=== PATIENT | female | born 1995 | race Caucasian/White ===

== ENCOUNTER 2020-11-09 09:15 | Observation (INO) ==
[2020-11-09] MEDS ORDERED: Perflutren Lipid Microsphere 1.3 ML in 0.9 % Sodium Chloride 8.7 ML IVP PRN (14:55)
== END 2020-11-11 18:17 | disposition other institution (70) ==
LOC: 1NENULAB
PROVIDERS: ADMIT Obstetrics & Gynecology; ATTEND Obstetrics & Gynecology

== ENCOUNTER 2021-02-14 03:45 | Inpatient (IN) ==
[2021-02-14] MEDS ORDERED: Metoclopramide 10 MG/2 ML VIAL IVP PRN (04:14)
[2021-02-14] MEDS ORDERED: Azithromycin 500 MG in 0.9 % Sodium Chloride 250 ML IVPB PRN (04:14)
[2021-02-14] MEDS ORDERED: *HR* Nalbuphine 10 MG/ML AMPUL IV PRN (04:14)
[2021-02-14] MEDS ORDERED: Naloxone 0.4 MG/ML INJ IVP PRN (04:14)
[2021-02-14] MEDS ORDERED: Ondansetron 4 MG/2 ML VIAL IVP PRN (04:14)
[2021-02-14] MEDS ORDERED: Lidocaine 1% 20 ML MDV INFILT PRN (04:14)
[2021-02-14] MEDS ORDERED: Famotidine 20 MG/2 ML VIAL IVP PRN (04:14)
[2021-02-14] MEDS ORDERED: miSOPROStoL 25 MCG TABLET PO PRN (04:14)
[2021-02-14] MEDS ORDERED: Ringers Solution, Lactated 1,000 ML ONE (04:28)
[2021-02-14] MEDS: Ringers Solution, Lactated 1,000 ML IVC SCH ×2 (04:40→14:58)
[2021-02-14 04:54] LABS: Basophils % 0.2 %; Eosinophils # 0.1 K/mcL (0.0-0.6); Eosinophils % 0.4 %; Hemoglobin 9.9 g/dL (11.5-15.4); Immature Granulocytes % 1.9 % (0-4); Lymphocytes # 1.3 K/mcL (0.6-4.6); Lymphocytes % 10.7 %; Mean Corpuscular HGB Conc 31.9 g/dL (31.6-35.5); Mean Corpuscular Hemoglobin 27.3 pg (28.0-33.3); Mean Corpuscular Volume 85.6 fL (83.0-100.0); Mean Platelet Volume 10.4 fL (9.4-12.4); Monocytes # 0.9 K/mcL (0.0-1.3); Monocytes % 7.4 %; Neutrophils # 9.6 K/mcL (1.6-8.9); Platelet Count 315 K/mcL (140-400); Red Blood Count 3.62 M/mcL (3.82-4.97); Segmented Neutrophils % 79.4 %; White Blood Count 12.1 K/mcL (4.3-11.1)
[2021-02-14 05:23] LABS: Influenza A PCR Negative (Negative); Influenza B PCR Negative (Negative); Resp. Syncytial Virus PCR Negative (Negative)
[2021-02-14 05:24] LABS: SARS-CoV-2 by PCR (In House) Negative (Negative)
[2021-02-14] MEDS ORDERED: Oxytocin 20 units/ LR 1000 mL 20 UNIT/1,000 ML BAG IVC SCH (08:45)
[2021-02-14] MEDS ORDERED: Oxytocin 20 units/ LR 1000 mL 20 UNIT/1,000 ML BAG IVC ONE (08:46)
[2021-02-14 09:51] LABS: Amphetamine Screen,Urine Negative ng/mL (Cutoff=1000); Barbiturate Screen,Urine Negative ng/mL (Cutoff=200); Benzodiazepines Screen,Urine Negative ng/mL (Cutoff=200); Cannabinoid Screen,Urine Negative ng/mL (Cutoff = 50); Cocaine Screen,Urine Negative ng/mL (Cutoff= 300); Opiate Screen,Urine Negative ng/mL (Cutoff=300); Phencyclidine Screen,Urine Negative ng/mL (Cutoff=25)
[2021-02-14] MEDS ORDERED: EPHEDrine 50 MG/ML VIAL IVP PRN (10:09)
[2021-02-14] MEDS ORDERED: Ropivacaine/PF 0.2% 20 ML VIAL EP ONE (10:09)
[2021-02-14] MEDS ORDERED: *HR* FentaNYL (PF) 100 MCG/2 ML VIAL EP ONE (10:09)
[2021-02-15] MEDS: Ringers Solution, Lactated 1,000 ML IVC SCH ×3 (06:56→13:56)
[2021-02-15] MEDS ORDERED: *HR* FentaNYL (PF) 100 MCG/2 ML VIAL EP ONE (07:36)
[2021-02-15] MEDS ORDERED: Ropivacaine/PF 0.2% 20 ML VIAL EP ONE (07:36)
[2021-02-15] MEDS ORDERED: EPHEDrine 50 MG/ML VIAL IVP PRN (07:36)
[2021-02-15] MEDS ORDERED: Ropivacaine/PF 0.2% 20 ML VIAL ONE (07:40)
[2021-02-15] MEDS ORDERED: *HR* FentaNYL (PF) 100 MCG/2 ML VIAL ONE (07:40)
[2021-02-15] MEDS: Epidural Premix (fent/bupiv) 110 ML EP SCH ×2 (08:09→16:25)
[2021-02-15] MEDS ORDERED: Rho Immune Globulin 1,500 UNIT SYRINGE IM PRN (18:01)
[2021-02-15] MEDS ORDERED: Ondansetron ODT 4 MG TAB.RAPDIS SL PRN (18:01)
[2021-02-15] MEDS ORDERED: Oxytocin 20 units/ LR 1000 mL 20 UNIT/1,000 ML BAG IVC SCH (18:01)
[2021-02-15] MEDS ORDERED: Benzocaine/Menthol 56 GM AEROSOL SPRAY TP PRN (18:01)
[2021-02-15] MEDS ORDERED: Oxytocin 20 units/ LR 1000 mL 20 UNIT/1,000 ML BAG IVC ONE (18:01)
[2021-02-15] MEDS ORDERED: Lanolin 7 G OINT...G. TP PRN (18:01)
[2021-02-15] MEDS ORDERED: Measles/Mumps/Rubella Vacc 0.5 ML VIAL SQ PRN (18:01)
[2021-02-15] MEDS: Ibuprofen 600 MG TABLET PO SCH (20:11)
[2021-02-15] MEDS: Acetaminophen 325 MG TABLET PO SCH (23:51)
[2021-02-16 05:03] LABS: Basophils % 0.2 %; Eosinophils # 0.1 K/mcL (0.0-0.6); Eosinophils % 0.4 %; Hematocrit 29.6 % (35.3-44.9); Hemoglobin 9.6 g/dL (11.5-15.4); Immature Granulocytes % 0.7 % (0-4); Mean Corpuscular HGB Conc 32.4 g/dL (31.6-35.5); Mean Corpuscular Hemoglobin 27.7 pg (28.0-33.3); Mean Corpuscular Volume 85.5 fL (83.0-100.0); Mean Platelet Volume 10.4 fL (9.4-12.4); Monocytes # 1.3 K/mcL (0.0-1.3); Platelet Count 283 K/mcL (140-400); Red Blood Count 3.46 M/mcL (3.82-4.97); Segmented Neutrophils % 80.7 %
[2021-02-16 05:17] LABS: Neutrophils # 14.9 K/mcL (1.6-8.9); White Blood Count 18.4 K/mcL (4.3-11.1)
[2021-02-16 07:19] VITALS: BP 125/89; PULSE 79; TEMP 98.5; O2SAT 100
[2021-02-16] MEDS ORDERED: Multivit/Ca/Min/Fe/FA 1 TAB TABLET PO SCH (09:00)
[2021-02-16] MEDS ORDERED: Prenatal Vit/FA 1 EACH TABLET PO SCH (09:00)
[2021-02-16] MEDS: Ibuprofen 600 MG TABLET PO SCH (09:26)
[2021-02-16] MEDS: Acetaminophen 325 MG TABLET PO SCH (09:26)
== END 2021-02-16 18:50 | disposition home or self-care (01) | DRG 806 ==
LOC: 1NENULAB 03:45 → 1NENUOBS 02-15 20:00
PROVIDERS: ADMIT Student in an Organized Health Care Education/Training Program; ATTEND Student in an Organized Health Care Education/Training Program